=== PATIENT | male | born 1975 | race Caucasian/White ===

== ENCOUNTER 2016-06-15 10:08 | Inpatient (IN) | payer OTHER ==
[2016-06-15 10:15] VITALS: BMI 31.8
--- NOTE | 2016-06-15 10:26 | PDOC ---
History of Present Illness - General History Source: Patient Exam Limitations: No Limitations - History of Present Illness Initial Comments: 06/15/16 10:28 The patient is a 41-year-old man, accompanied by mother, with a significant past medical history of hypertension, heroin IVDA (on Methadone maint), hepatitis C, deep venous thrombosis(2010;was on Coumadin but has been discontinued), bipolar who presents to the emergency department via walk-in for further evaluation of worsening right sided neck pain/swelling status post spider bite approximately 4 days ago. He was in the shower in his apartment when he saw a big spider that bit him on the right side of his neck. He reports feeling warm, 2 days ago. He states that he attempted to squeeze the affected area and some pus and blood came out. No numbness, tingling, weakness sensations throughout his extremities. No difficulty breathing, swallowing. No tactile fevers, diaphoresis. Patient denies any recent IVDU No chest pain, lightheadedness, dizziness, palpitations, visual changes, leg swelling. No chills, abdominal pain, nausea, vomiting, diarrhea. Allergies: Bees Past Surgical History: None reported. Social History: Current everyday cigarette smoker (approximately 20 cigarettes/ day). No ETOH use. Former heroin use (was on Methaodone) Primary Care Physician: Dr. Lima Riddle <Haley Clement - Last Filed: 06/15/16 15:22> <Khurram Nunes - Last Filed: 06/15/16 15:57> - General Chief Complaint: Bite Stated Complaint: SPIDER BITE ON NECK Time Seen by Provider: 06/15/16 10:22 Past History <Haley Clement - Last Filed: 06/15/16 15:22> - Past Medical History Hypercholesterolemia: Yes - Surgical History Abdominal Surgery: Yes (INGINAL HERNIA EDILBERTO) - Psycho/Social/Smoking Cessation Hx Anxiety: Yes Suicidal Ideation: No Smoking Status: Yes Smoking History: Current every day smoker Number of Cigarettes Smoked Daily: 20 Information on smoking cessation initiated: Yes 'Breaking Loose' booklet given: 06/15/16 <Khurram Nunes - Last Filed: 06/15/16 15:57> - Past Medical History Allergies/Adverse Reactions: Allergies Allergy/AdvReac Type Severity Reaction Status Date / Time bee pollen Allergy Verified 06/15/16 10:10 Home Medications: Ambulatory Orders Quetiapine Fumarate "Xr" [Seroquel Xr -] 400 mg PO BID 06/15/16 Zolpidem Tartrate [Ambien] 10 mg PO HS 06/15/16 Review of Systems - Review of Systems Able to Perform ROS?: Yes Comments:: 06/15/16 10:28 CONSTITUTIONAL: +Subjective fever No reported: Chills, Diaphoresis, Generalized Weakness, Malaise, Loss of Appetite HEENT: No reported: Rhinorrhea, Nasal Congestion, Throat Pain, Throat Swelling, Difficulty Swallowing, Mouth Swelling, Ear Pain, Eye Pain, Visual Changes CARDIOVASCULAR: No reported: Chest Pain, Syncope, Palpitations, Irregular Heart Rate, Lightheadedness, Peripheral Edema RESPIRATORY: No reported: Cough, Shortness of Breath, SOB with Exertion, Orthopnea, Wheezing , Stridor, Hemoptysis GASTROINTESTINAL: No reported: Abdominal pain, Abdominal Distension, Nausea, Vomiting, Diarrhea, Constipation, Melena, Hematochezia GENITOURINARY: No reported: Dysuria, Frequency, Urgency, Hesitancy, Flank Pain, Genital Pain MUSCULOSKELETAL: Reported: Neck Pain/Sweeling. No reported: Myalgia, Arthralgia, Joint Swelling, Back pain SKIN: Reported: Right Neck Sweeling. No reported: Rash, Itching, Pallor HEMEATOLOGIC/IMMUNOLOGIC: No reported: Easy Bleeding, Easy Bruising, Lymphadenopathy, Frequent infections ENDOCRINE: No reported: Unexplained Weight Gain, Unexplained Weight Loss, Heat Intolerance , Cold Intolerance NEUROLOGIC: No reported: Headache, Focal Weakness, Paresthesias, Vertigo, Lightheadedness, Unsteady Gait, Seizure, Mental Status Changes, Incontinence PSYCHIATRIC: No reported: Anxiety, Depression <Haley Clement - Last Filed: 06/15/16 15:22> *Physical Exam - Vital Signs Last Vital Signs Temp Pulse Resp BP Pulse Ox 97.9 F 87 16 126/79 9 L 06/15/16 10:10 06/15/16 10:10 06/15/16 10:10 06/15/16 10:10 06/15/16 10:10 - Physical Exam Comments: 06/15/16 10:28 GENERAL: The patient is awake, alert, and fully oriented, Nontoxic - in no acute distress. HEAD: Normocephalic, atraumatic. EYES: extraocular movements intact, sclera anicteric, conjunctiva clear. ENT: Normal voice, Moist mucous membranes. NECK: Normal range of motion, supple. There is a 3x4cm erythematous slightly fluctuant tender mass on the right lateral posterior aspect of the neck with some surrounding erythema and also with some significant diffuse tenderness in the area that extends outside of the area of erythema LUNGS: Breath sounds equal, clear to auscultation bilaterally. No wheezes, no rhonchi, no rales. HEART: Regular rate and rhythm, without murmur, rub or gallop. ABDOMEN: Soft, nontender, normoactive bowel sounds. No guarding, no rebound.No CVA tenderness EXTREMITIES: Normal range of motion, no edema. No clubbing or cyanosis. No cords, erythema, or tenderness. NEUROLOGICAL: No facial assymetry, Normal speech, PSYCH: Normal mood, normal affect. SKIN: Warm, Dry, normal turgor. <Haley Clement - Last Filed: 06/15/16 15:22> - Vital Signs Last Vital Signs Temp Pulse Resp BP Pulse Ox 97.9 F 87 16 126/79 9 L 06/15/16 10:10 06/15/16 10:10 06/15/16 10:10 06/15/16 10:10 06/15/16 10:10 <Khurram Nunes - Last Filed: 06/15/16 15:57> ED Treatment Course - LABORATORY CBC & Chemistry Diagram: 06/15/16 11:34 06/15/16 11:34 - RADIOLOGY Radiograph Interpretation: 06/15/16 14:02 EXAM: CT/SOFT TISSUE NECK CT WITH CONTR IMPRESSION: CT neck with IV contrast enhancement. Direct axial images were obtained with coronal, sagittal reconstruction images. Patient received 90 cc of Omniscan 350. Mild induration of the subcutaneous soft tissues along the lateral surface of the right sternocleidomastoid muscle in the right neck region at the site of the BB markers is seen - superficial cellulitis. No abscess is seen. No enlarged lymph nodes are seen. The visualized CSF spaces are normal. No evidence of edema, enhancing lesion is seen in the visualized brain parenchyma. Symmetrical ocular globes. Unremarkable retro-orbital soft tissues. Nonspecific mucosal changes are noted in the left maxillary sinus. The paranasal sinuses mastoid sinuses are not opacified. Normal parapharyngeal spaces. The pharyngeal, laryngeal and tracheal airways are patent. There is no evidence of submandibular space mass. The submandibular glands appear bilaterally symmetric and normal in size and density. The parotid glands also appear normal and symmetrical in size, contour, density with no evidence of intraparotid mass or adenopathy. Normal epiglottis, vallecula, aryepiglottic folds, vocal cords. Normal thyroid gland. No evidence of prevertebral soft tissue swelling, retropharyngeal fluid collection or edema. No dominant neck mass is seen. No evidence of neck adenopathy. Unremarkable thyroid gland. The lung apices are clear. Normal enhancement of the major vessels of the neck. Normal bifurcation of common carotid arteries. No stenotic lesions are seen. The left common carotid artery originates from the aortic arch. Normal height of vertebral bodies. C6-C7. Posterior degenerative para discal osteophytes. Intact odontoid. No evidence of widening of predental space. The intraspinal contents cannot be adequately evaluated due to the beam hardening artifacts. No bony destructive <Haley Clement - Last Filed: 06/15/16 15:22> - LABORATORY CBC & Chemistry Diagram: 06/15/16 11:34 06/15/16 11:34 <Khurram Nunes - Last Filed: 06/15/16 15:57> Medical Decision Making - Medical Decision Making 06/15/16 14:03 A call was placed to Medical Physician emergency medicine nurse practitioner, Dr. Yelena Soares at [phone]. 06/15/16 14:[address] Yelena Soares. 06/15/16 14:[address] Yelena Soares at her mobile phone. Left voicemail. 06/15/16 15:22 MicroBlogged Hospitalist. <Haley Clement - Last Filed: 06/15/16 15:22> - Medical Decision Making 06/15/16 10:53 41y M hx of IVDU currently on methadon maintenance presents 5 days s/p presumed spider bite (he saw a spider on fall down when he was taking a shower on monday), he developed a small lesion that worsened and by monday was more larger/painful - he tried to drain it himself using pressure and saw some bloody /yellow/purulent drainage with subjective fever. on exam pt has eruthema/with induration and signs of surrounding tenderness outside of the area of erythema likely cellulitis/abscess, will obtain ct of neck to r/o spread of infection byond subq tissue A portion of this note was documented by scribe services under my direction. I have reviewed the details of the note, within reason, and agree with the documentation with the following case summary and management plan written by me 06/15/16 15:[address] negative for severe infection, cellulitis but due to his pain will admit to observation for ivabx case d/w dr. huerta agreed with placement in observation Case discussed in detail with admitting physician including history, physical exam and ancillary studies. Admitting physician has assumed care for the patient, will follow all pending diagnostics and will complete the evaluation and treatment. <Khurram Nunes - Last Filed: 06/15/16 15:57> *DC/Admit/Observation/Transfer - Attestations Scribe Attestion: 06/15/16 10:28 Documentation prepared by Haley Clement, acting as medical imaging director for Khurram Nunes MD. <Haley Clement - Last Filed: 06/15/16 15:22> - Discharge Dispostion Admit: Yes <Khurram Nunes - Last Filed: 06/15/16 15:57> Diagnosis at time of Disposition: Cellulitis of neck - Discharge Dispostion Condition at time of disposition: Stable - Referrals Referrals: Lima Riddle [Primary Care Provider] -
[2016-06-15] MEDS ORDERED: VANCOMYCIN 1,000 MG in DEXTROSE 5%-WATER - 250 ML IVPB ONE (11:11)
[2016-06-15] MEDS ORDERED: morphine CARPU-JECT 4 MG/1 ML DISP.SYRIN IVPUSH ONE ×2 (11:40→15:03)
[2016-06-15] MEDS ORDERED: morphine CARPU-JECT 4 MG/1 ML DISP.SYRIN ONE ×2 (11:40→15:17)
[2016-06-15] MEDS ORDERED: VANCOMYCIN 1 GRAM (PRE-DOCKED) 250 ML IVPB ONE ×2 (11:40→22:30)
[2016-06-15 12:07] LABS: BASOPHIL 1.2 % (0-2.0); EOSINOPHIL 3.2 % (0-4.5); MCH 29.7 pg (25.7-33.7); MCHC 33.9 g/dl (32.0-35.9); MEAN CELL VOLUME 87.5 fl (80-96); MEAN PLT VOLUME 8.5 fl (7.5-11.1); NEUTROPHILS 57.6 % (42.8-82.8); PLATELET COUNT 241 K/MM3 (134-434); RDW 13.8 % (11.9-15.9); WHITE BLOOD COUNT 6.4 K/mm3 (4.0-10.0)
[2016-06-15 12:22] LABS: INR 0.99 (0.82-1.09); PROTHROMBIN TIME (PATIENT) 10.9 SEC (9.98-11.88)
[2016-06-15 12:31] LABS: ALBUMIN 3.7 g/dl (3.4-5.0); ANION GAP 8 (8-16); BILIRUBIN,TOTAL 0.3 mg/dL (0.2-1.0); CALCIUM 8.5 mg/dL (8.5-10.1); CO2 26 mmol/L (21-32); CREATININE 0.8 mg/dL (0.7-1.3); GLUCOSE,RANDOM 81 mg/dL (74-106); SGOT/AST 16 U/L (15-37); SGPT/ALT 18 U/L (12-78); TOT PROT 7.3 g/dl (6.4-8.2)
[2016-06-15 12:32] LABS: ALK PHOS 84 U/L (45-117)
[2016-06-15] MEDS: morphine CARPU-JECT 2 MG/1 ML DISP.SYRIN IVPUSH PRN (20:10)
[2016-06-15] MEDS: ZOLPIDEM TARTRATE 5 MG TABLET PO PRN (21:47)
[2016-06-15] MEDS ORDERED: PATIENT'S OWN MEDICATION (NON-FORMULARY) (Zolpidem Tartrate 10 MG) PO SCH (22:00)
[2016-06-16] MEDS: morphine CARPU-JECT 2 MG/1 ML DISP.SYRIN IVPUSH PRN ×2 (06:05→11:53)
[2016-06-16 07:57] LABS: BASOPHIL 0.8 % (0-2.0); EOSINOPHIL 2.9 % (0-4.5); MCH 29.3 pg (25.7-33.7); MCHC 33.6 g/dl (32.0-35.9); MEAN CELL VOLUME 87.4 fl (80-96); MEAN PLT VOLUME 8.6 fl (7.5-11.1); NEUTROPHILS 63.6 % (42.8-82.8); PLATELET COUNT 250 K/MM3 (134-434); RDW 13.8 % (11.9-15.9); WHITE BLOOD COUNT 6.7 K/mm3 (4.0-10.0)
[2016-06-16 08:21] LABS: ALBUMIN 3.7 g/dl (3.4-5.0); ANION GAP 7 (8-16); CO2 28 mmol/L (21-32); CREATININE 0.9 mg/dL (0.7-1.3); GLUCOSE,RANDOM 98 mg/dL (74-106); SGOT/AST 15 U/L (15-37); SGPT/ALT 17 U/L (12-78)
[2016-06-16 08:24] LABS: ALK PHOS 81 U/L (45-117); BILIRUBIN,TOTAL 0.3 mg/dL (0.2-1.0); TOT PROT 7.4 g/dl (6.4-8.2)
[2016-06-16] MEDS ORDERED: VANCOMYCIN 1 GRAM (PRE-DOCKED) 250 ML IVPB SCH (10:00)
[2016-06-16] MEDS ORDERED: ENOXAPARIN NA (PORCINE) 40 MG/0.4 ML DISP.SYRIN SQ SCH (10:00)
[2016-06-16] MEDS ORDERED: PT OWN MED DRAWER 7, Y5N ONE ×2 (10:21→20:49)
[2016-06-16] MEDS ORDERED: METHADONE HCL 10 MG TABLET ONE (12:24)
[2016-06-16] MEDS ORDERED: METHADONE HCL 40 MG DISPERSABLE TABLET ONE (12:28)
[2016-06-16] MEDS ORDERED: NICOTINE 21 MG/24 HOURS TOPICAL PATCH TD SCH (12:30)
[2016-06-16] MEDS: METHADONE 120 MG, METHADONE 20 MG PO SCH (12:38)
--- NOTE | 2016-06-16 14:14 | CONSULT ---
Consult Consult Specialty:: infectious diseases Referred by:: Reason for Consultation:: abscess on the neck rt side - History of Present Illness Chief Complaint: swelling rt side of the neck History of Present Illness: patient with no specific medical problems according to him says on monday he was bit by a big spider .he did not think of anything at that time patients swelling increased from monday and patient came to the hospital on mon patient felt feverish but was not sure that he had fever patient states that it has increased from yesterday to today currently except swelling nothing is bothering him - History Source History Provided By: Patient Limitations to Obtaining History: No Limitations - Smoking History Smoking history: Current every day smoker Aproximately how many cigarettes per day: 20 Home Medications - Allergies Allergies/Adverse Reactions: Allergies Allergy/AdvReac Type Severity Reaction Status Date / Time bee pollen Allergy Verified 06/15/16 10:10 - Home Medications Home Medications: Ambulatory Orders Quetiapine Fumarate "Xr" [Seroquel Xr -] 400 mg PO BID 06/15/16 Zolpidem Tartrate [Ambien] 10 mg PO HS 06/15/16 Review of Systems - Review of Systems Constitutional: reports: Other Eyes: reports: No Symptoms HENT: reports: No Symptoms Neck: reports: Lumps, Pain on Movement, Tenderness, Other (swelling on the rt side of the neck) Cardiovascular: reports: No Symptoms Respiratory: reports: No Symptoms Gastrointestinal: reports: No Symptoms Musculoskeletal: reports: Other (swelling on the rt side of the neck) Integumentary: reports: Change in Color, Erythema, Lump Neurological: reports: No Symptoms Endocrine: reports: No Symptoms Hematology/Lymphatic: reports: No Symptoms Psychiatric: reports: No Symptoms Physical Exam Vital Signs: Vital Signs Temperature 98.4 F 06/16/16 06:28 Pulse Rate 90 06/16/16 06:28 Respiratory Rate 20 06/16/16 06:28 Blood Pressure 110/68 06/16/16 06:28 O2 Sat by Pulse Oximetry (%) 9 L 06/15/16 15:56 Constitutional: Yes: Well Nourished, No Distress, Calm Eyes: Yes: Conjunctiva Clear HENT: Yes: Atraumatic, Other Neck: Yes: Supple, Other (swelling on the rt side of the neck,bite juana present) Cardiovascular: Yes: Regular Rate and Rhythm Respiratory: Yes: Regular, CTA Bilaterally Gastrointestinal: Yes: Normal Bowel Sounds, Soft Musculoskeletal: Yes: Other Extremities: Yes: WNL Integumentary: Yes: Erythema, Other Wound/Incision: Yes: Open to air Neurological: Yes: Alert, Oriented Psychiatric: Yes: Alert Labs: CBC, BMP 06/16/16 07:00 06/16/16 07:00 Imaging - Results Cat Scan: Report Reviewed, Image Reviewed Assessment/Plan spider bite to the neck swelling of the neck pain tenderness plan will start patient on vanco and zosyn close monitoring of the swelling
--- NOTE | 2016-06-16 16:17 | HP ---
Admitting History and Physical - Smoking History Smoking history: Current every day smoker Aproximately how many cigarettes per day: 20 Home Medications - Allergies Allergies/Adverse Reactions: Allergies Allergy/AdvReac Type Severity Reaction Status Date / Time bee pollen Allergy Verified 06/15/16 10:10 - Home Medications Home Medications: Ambulatory Orders Quetiapine Fumarate "Xr" [Seroquel Xr -] 400 mg PO BID 06/15/16 Zolpidem Tartrate [Ambien] 10 mg PO HS 06/15/16 Physical Examination Vital Signs: Vital Signs Temperature 98.1 F 06/16/16 14:38 Pulse Rate 80 06/16/16 14:38 Respiratory Rate 20 06/16/16 06:28 Blood Pressure 120/64 06/16/16 14:38 O2 Sat by Pulse Oximetry (%) 9 L 06/15/16 15:56 Labs: CBC, BMP 06/16/16 07:00 06/16/16 07:00
[2016-06-16] MEDS: PIPERACILLIN/TAZOB 3.375 GM 50 ML IVPB SCH (17:10)
[2016-06-16] MEDS: VANCOMYCIN 1 GRAM (PRE-DOCKED) 250 ML IVPB SCH (17:55)
[2016-06-16] MEDS: KETOROLAC TROMETHAMINE 30 MG/1 ML VIAL IVPUSH PRN (21:13)
[2016-06-16] MEDS: ZOLPIDEM TARTRATE 5 MG TABLET PO PRN (21:17)
[2016-06-17] MEDS: PIPERACILLIN/TAZOB 3.375 GM 50 ML IVPB SCH ×4 (02:51→18:40)
[2016-06-17] MEDS ORDERED: METHADONE HCL 10 MG TABLET ONE (06:01)
[2016-06-17] MEDS ORDERED: METHADONE HCL 40 MG DISPERSABLE TABLET ONE (06:02)
[2016-06-17] MEDS: METHADONE 120 MG, METHADONE 20 MG PO SCH (06:25)
[2016-06-17] MEDS: KETOROLAC TROMETHAMINE 30 MG/1 ML VIAL IVPUSH PRN (06:57)
--- NOTE | 2016-06-17 09:05 | CONSULT ---
- Consultation REQUESTED PROVIDER: Dr. Hensley CONSULT REQUEST: We have been asked to surgically evaluate this patient for neck abscess. PCP: Yelena Soares HISTORY OF PRESENT ILLNESS: 41 yo M presented to the ED 06/15/16 complaining of fever and neck pain/swelling/redness that developed following a spider bite 6 days ago. The patient states the pain/swelling/redness developed approximately 2 days following the bite. He states these symptoms have been improving since yesterday. He states the bite on his neck opened last night and a small amount of blood and pus came out. He denies fever, chills, nausea, vomiting. PMHx: Anxiety, heroin IVDA (denies current use), hepatitis C, DVT 2010 ( treated with Coumadin) PSHx: Denies Social Hx: Current everyday smoker (20 cigarettes per day) Home Medications Medication Instructions Recorded Quetiapine Fumarate "Xr" [Seroquel 400 mg PO BID 06/15/16 Xr -] Zolpidem Tartrate [Ambien] 10 mg PO HS 06/15/16 Allergies Allergy/AdvReac Type Severity Reaction Status Date / Time bee pollen Allergy Verified 06/15/16 10:10 REVIEW OF SYSTEMS: CONSTITUTIONAL: Absent: fever (resolved), chills, generalized weakness CARDIOVASCULAR: Absent: chest pain, syncope, lightheadedness RESPIRATORY: Absent: cough, shortness of breath GASTROINTESTINAL: Absent: abdominal pain, nausea, vomiting, diarrhea, constipation GENITOURINARY: Absent: dysuria, frequency, urgency MUSCULOSKELETAL: Absent: myalgia, arthralgia SKIN: Present: Spider bite right neck with redness, swelling, pain Absent: rash, itching, pallor HEMATOLOGIC/IMMUNOLOGIC: Absent: easy bleeding, easy bruising NEUROLOGIC: Absent: headache, paresthesias, dizziness PHYSICAL EXAM: GENERAL: Awake, alert, and fully oriented, in no acute distress. HEAD: Normal with no signs of trauma. EYES: PERRL, sclera anicteric, conjunctiva clear. NECK: Normal ROM, right neck with approx 3x2cm area of erythema and induration, without fluctuance, central 3mm scabbed central area/opening, unable to express drainage LUNGS: Clear to auscultation bilat anteriorly. HEART: Regular rate and rhythm. ABDOMEN: Soft, nontender MUSCULOSKELETAL: Normal ROM at all joints UPPER EXTREMITIES:warm, well-perfused. LOWER EXTREMITIES: warm, well-perfused. NEUROLOGICAL: Normal speech, gait not observed. PSYCH: Good eye contact. Appropriate mood and affect. SKIN: Warm, dry Vital Signs Temperature 97.2 F L 06/17/16 06:00 Pulse Rate 66 06/17/16 06:00 Respiratory Rate 16 06/17/16 06:00 Blood Pressure 129/74 06/17/16 06:00 O2 Sat by Pulse Oximetry (%) 96 06/16/16 21:00 Lab Results CBC, BMP 06/16/16 07:00 06/16/16 07:00 Microbiology 06/15/16 11:34 Blood - Peripheral Venous Blood Culture - Preliminary NO GROWTH OBTAINED AFTER 24 HOURS, INCUBATION TO CONTINUE FOR 4 DAYS. 06/15/16 11:34 Blood - Peripheral Venous Blood Culture - Preliminary NO GROWTH OBTAINED AFTER 24 HOURS, INCUBATION TO CONTINUE FOR [address] soft tissue neck- without evidence of neck abscess Problem List - Problems (1) Cellulitis of neck Assessment/Plan: S/p spider bite right neck Patient afebrile, WBC WNL CT soft tissue neck- without evidence of neck abscess Continue abx per ID Code(s): L03.221 - CELLULITIS OF NECK Visit type - Case Type Case Type: ED Admission - New patient This patient is new to me today: Yes Date on this admission: 06/17/16
[2016-06-17] MEDS: NICOTINE 21 MG/24 HOURS TOPICAL PATCH TD SCH (10:30)
[2016-06-17] MEDS: VANCOMYCIN 1 GRAM (PRE-DOCKED) 250 ML IVPB SCH (14:12)
--- NOTE | 2016-06-17 15:54 | PN ---
Progress Note, Physician History of Present Illness: patient doing better marked improvement in swelling still a lot on induration and edema and erythema present no other issues - Current Medication List Current Medications: Active Medications Vancomycin HCl (Vancomycin (Pre-Docked)) 250 mls @ 250 mls/hr IVPB DAILY@1430 [facility] PRN Reason: Protocol Last Admin: 06/17/16 14:12 Dose: 250 mls/hr Piperacillin Sod/Tazobactam Sod (Zosyn 3.375gm Ivpb (Pre-Docked)) 50 mls @ 100 mls/hr IVPB Q8H-IV [facility] PRN Reason: Protocol Last Admin: 06/17/16 10:29 Dose: 100 mls/hr Ketorolac Tromethamine (Toradol Injection -) 30 mg IVPUSH Q6H PRN PRN Reason: PAIN Stop: 06/21/16 20:50 Last Admin: 06/17/16 06:57 Dose: 30 mg Methadone HCl 120 mg/ (Methadone HCl 20 mg) 140 mg PO DAILY@0600 [facility] Last Admin: 06/17/16 06:25 Dose: 140 mg Nicotine (Nicoderm Patch -) 21 mg TD DAILY [facility] Last Admin: 06/17/16 10:30 Dose: Not Given Quetiapine Fumarate (Seroquel Xr -) 400 mg PO BID [facility] Last Admin: 06/17/16 10:30 Dose: 400 mg Zolpidem Tartrate (Ambien -) 10 mg PO HS PRN Last Admin: 06/16/16 21:17 Dose: 10 mg - Objective Vital Signs: Vital Signs Temperature 97.6 F 06/17/16 14:26 Pulse Rate 62 06/17/16 14:26 Respiratory Rate 16 06/17/16 06:00 Blood Pressure 119/60 06/17/16 14:26 O2 Sat by Pulse Oximetry (%) 96 06/16/16 21:00 Constitutional: Yes: No Distress, Calm HENT: Yes: Other (neck swelling improving) Cardiovascular: Yes: Regular Rate and Rhythm Respiratory: Yes: Regular, CTA Bilaterally Gastrointestinal: Yes: Normal Bowel Sounds, Soft Musculoskeletal: Yes: WNL Extremities: Yes: WNL Neurological: Yes: Alert, Oriented Psychiatric: Yes: Alert Labs: CBC, BMP 06/16/16 07:00 06/16/16 07:00 INR, PTT INR 0.99 (0.82-1.09) D 06/15/16 11:34 Assessment/Plan spider bite to the neck swelling of the neck pain tenderness plan continue abx will need couple of days of iv abx i have explained that to the patient he does not want to say for the duration of treatment i derickve explained him the dangers of not completing the abx
--- NOTE | 2016-06-17 20:07 | PN ---
Progress Note, Physician - Current Medication List Current Medications: Active Medications Vancomycin HCl (Vancomycin (Pre-Docked)) 250 mls @ 250 mls/hr IVPB DAILY@1430 [facility] PRN Reason: Protocol Last Admin: 06/17/16 14:12 Dose: 250 mls/hr Piperacillin Sod/Tazobactam Sod (Zosyn 3.375gm Ivpb (Pre-Docked)) 50 mls @ 100 mls/hr IVPB Q8H-IV [facility] PRN Reason: Protocol Last Admin: 06/17/16 18:40 Dose: 100 mls/hr Ketorolac Tromethamine (Toradol Injection -) 30 mg IVPUSH Q6H PRN PRN Reason: PAIN Stop: 06/21/16 20:50 Last Admin: 06/17/16 06:57 Dose: 30 mg Methadone HCl 120 mg/ (Methadone HCl 20 mg) 140 mg PO DAILY@0600 [facility] Last Admin: 06/17/16 06:25 Dose: 140 mg Nicotine (Nicoderm Patch -) 21 mg TD DAILY [facility] Last Admin: 06/17/16 10:30 Dose: Not Given Quetiapine Fumarate (Seroquel Xr -) 400 mg PO BID [facility] Last Admin: 06/17/16 10:30 Dose: 400 mg Zolpidem Tartrate (Ambien -) 10 mg PO HS PRN Last Admin: 06/16/16 21:17 Dose: 10 mg - Objective Vital Signs: Vital Signs Temperature 98.0 F 06/17/16 18:16 Pulse Rate 75 06/17/16 18:16 Respiratory Rate 20 06/17/16 18:16 Blood Pressure 131/70 06/17/16 18:16 O2 Sat by Pulse Oximetry (%) 96 06/17/16 09:00 Labs: CBC, BMP 06/16/16 07:00 06/16/16 07:00 INR, PTT INR 0.99 (0.82-1.09) D 06/15/16 11:34
[2016-06-17] MEDS ORDERED: PT OWN MED DRAWER 7, Y5N ONE (21:30)
[2016-06-17] MEDS: ZOLPIDEM TARTRATE 5 MG TABLET PO PRN (22:29)
[2016-06-18] MEDS: PIPERACILLIN/TAZOB 3.375 GM 50 ML IVPB SCH ×3 (02:20→17:27)
[2016-06-18] MEDS ORDERED: METHADONE HCL 10 MG TABLET ONE (06:05)
[2016-06-18] MEDS ORDERED: METHADONE HCL 40 MG DISPERSABLE TABLET ONE (06:05)
[2016-06-18] MEDS: METHADONE 120 MG, METHADONE 20 MG PO SCH (06:20)
--- NOTE | 2016-06-18 08:44 | PN ---
Progress Note (short form) - Note Progress Note: clinically improving no surgical intervention at this point continue current management will continue to follow
[2016-06-18] MEDS ORDERED: PT OWN MED DRAWER 7, Y5N ONE ×3 (09:44→21:22)
[2016-06-18] MEDS: NICOTINE 21 MG/24 HOURS TOPICAL PATCH TD SCH (09:55)
--- NOTE | 2016-06-18 14:51 | PN ---
Progress Note, Physician History of Present Illness: patient doing better improvement in the swelling centrifugal screen tender and erythema still present - Current Medication List Current Medications: Active Medications Vancomycin HCl (Vancomycin (Pre-Docked)) 250 mls @ 250 mls/hr IVPB DAILY@1430 [facility] PRN Reason: Protocol Last Admin: 06/17/16 14:12 Dose: 250 mls/hr Piperacillin Sod/Tazobactam Sod (Zosyn 3.375gm Ivpb (Pre-Docked)) 50 mls @ 100 mls/hr IVPB Q8H-IV [facility] PRN Reason: Protocol Last Admin: 06/18/16 09:54 Dose: 100 mls/hr Ketorolac Tromethamine (Toradol Injection -) 30 mg IVPUSH Q6H PRN PRN Reason: PAIN Stop: 06/21/16 20:50 Last Admin: 06/17/16 06:57 Dose: 30 mg Methadone HCl 120 mg/ (Methadone HCl 20 mg) 140 mg PO DAILY@0600 [facility] Last Admin: 06/18/16 06:20 Dose: 140 mg Nicotine (Nicoderm Patch -) 21 mg TD DAILY [facility] Last Admin: 06/18/16 09:55 Dose: Not Given Quetiapine Fumarate (Seroquel Xr -) 400 mg PO BID [facility] Last Admin: 06/18/16 09:55 Dose: 400 mg Zolpidem Tartrate (Ambien -) 10 mg PO HS PRN Last Admin: 06/17/16 22:29 Dose: 10 mg - Objective Vital Signs: Vital Signs Temperature 98.2 F 06/18/16 14:12 Pulse Rate 76 06/18/16 14:12 Respiratory Rate 20 06/18/16 06:23 Blood Pressure 122/62 06/18/16 14:12 O2 Sat by Pulse Oximetry (%) 96 06/17/16 21:00 Constitutional: Yes: No Distress, Calm HENT: Yes: Other (rt neck swelling with erythema) Neck: Yes: Supple Cardiovascular: Yes: Regular Rate and Rhythm Respiratory: Yes: Regular, CTA Bilaterally Gastrointestinal: Yes: Normal Bowel Sounds, Soft Musculoskeletal: Yes: WNL Extremities: Yes: WNL Integumentary: Yes: Erythema, Other Wound/Incision: Yes: Clean/Dry Neurological: Yes: Alert, Oriented Psychiatric: Yes: Alert Labs: CBC, BMP 06/16/16 07:00 06/16/16 07:00 INR, PTT INR 0.99 (0.82-1.09) D 06/15/16 11:34 Assessment/Plan spider bite to the neck swelling of the neck pain tenderness plan continue abx will need couple of days of iv abx i have explained that to the patient he does not want to say for the duration of treatment i ahve explained him the dangers of not completing the abx
[2016-06-18] MEDS: VANCOMYCIN 1 GRAM (PRE-DOCKED) 250 ML IVPB SCH (15:00)
[2016-06-18] MEDS ORDERED: ZOLPIDEM TARTRATE 5 MG TABLET PO PRN (23:10)
--- NOTE | 2016-06-18 23:47 | PN ---
Progress Note, Physician - Current Medication List Current Medications: Active Medications Vancomycin HCl (Vancomycin (Pre-Docked)) 250 mls @ 250 mls/hr IVPB DAILY@1430 [facility] PRN Reason: Protocol Last Admin: 06/18/16 15:00 Dose: 250 mls/hr Piperacillin Sod/Tazobactam Sod (Zosyn 3.375gm Ivpb (Pre-Docked)) 50 mls @ 100 mls/hr IVPB Q8H-IV [facility] PRN Reason: Protocol Last Admin: 06/18/16 17:27 Dose: 100 mls/hr Ketorolac Tromethamine (Toradol Injection -) 30 mg IVPUSH Q6H PRN PRN Reason: PAIN Stop: 06/21/16 20:50 Last Admin: 06/17/16 06:57 Dose: 30 mg Methadone HCl 120 mg/ (Methadone HCl 20 mg) 140 mg PO DAILY@0600 [facility] Last Admin: 06/18/16 06:20 Dose: 140 mg Nicotine (Nicoderm Patch -) 21 mg TD DAILY [facility] Last Admin: 06/18/16 09:55 Dose: Not Given Quetiapine Fumarate (Seroquel Xr -) 400 mg PO BID [facility] Last Admin: 06/18/16 21:25 Dose: 400 mg Zolpidem Tartrate (Ambien -) 10 mg PO HS PRN PRN Reason: INSOMNIA - Objective Vital Signs: Vital Signs Temperature 97.5 F L 06/18/16 21:00 Pulse Rate 73 06/18/16 21:00 Respiratory Rate 18 06/18/16 21:00 Blood Pressure 111/67 06/18/16 21:00 O2 Sat by Pulse Oximetry (%) 96 06/17/16 21:00 Labs: CBC, BMP 06/16/16 07:00 06/16/16 07:00 INR, PTT INR 0.99 (0.82-1.09) D 06/15/16 11:34
[2016-06-19] MEDS: PIPERACILLIN/TAZOB 3.375 GM 50 ML IVPB SCH ×2 (02:15→09:39)
[2016-06-19 05:48] VITALS: TEMP 97.7
[2016-06-19] MEDS ORDERED: METHADONE HCL 10 MG TABLET ONE (06:00)
[2016-06-19] MEDS ORDERED: METHADONE HCL 40 MG DISPERSABLE TABLET ONE (06:01)
[2016-06-19] MEDS: METHADONE 120 MG, METHADONE 20 MG PO SCH (06:02)
[2016-06-19] MEDS: NICOTINE 21 MG/24 HOURS TOPICAL PATCH TD SCH (09:39)
--- NOTE | 2016-06-19 13:15 | PN ---
Progress Note (short form) - Note Progress Note: clinically improved clear for discharge on oral antibiotics
[2016-06-19 14:37] VITALS: BP 101/50; PULSE 73
[2016-06-19] MEDS: VANCOMYCIN 1 GRAM (PRE-DOCKED) 250 ML IVPB SCH (14:46)
--- NOTE | 2016-06-19 15:13 | PN ---
Progress Note, Physician History of Present Illness: patient doing better much better still some swelling present - Current Medication List Current Medications: Active Medications Vancomycin HCl (Vancomycin (Pre-Docked)) 250 mls @ 250 mls/hr IVPB DAILY@1430 [facility] PRN Reason: Protocol Last Admin: 06/19/16 14:46 Dose: 250 mls/hr Piperacillin Sod/Tazobactam Sod (Zosyn 3.375gm Ivpb (Pre-Docked)) 50 mls @ 100 mls/hr IVPB Q8H-IV KANDI PRN Reason: Protocol Last Admin: 06/19/16 09:39 Dose: 100 mls/hr Ketorolac Tromethamine (Toradol Injection -) 30 mg IVPUSH Q6H PRN PRN Reason: PAIN Stop: 06/21/16 20:50 Last Admin: 06/17/16 06:57 Dose: 30 mg Methadone HCl 120 mg/ (Methadone HCl 20 mg) 140 mg PO DAILY@0600 [facility] Last Admin: 06/19/16 06:02 Dose: 140 mg Nicotine (Nicoderm Patch -) 21 mg TD DAILY [facility] Last Admin: 06/19/16 09:39 Dose: Not Given Quetiapine Fumarate (Seroquel Xr -) 400 mg PO BID [facility] Last Admin: 06/19/16 09:39 Dose: 400 mg Zolpidem Tartrate (Ambien -) 10 mg PO HS PRN PRN Reason: INSOMNIA - Objective Vital Signs: Vital Signs Temperature 97.7 F 06/19/16 14:00 Pulse Rate 73 06/19/16 14:00 Respiratory Rate 12 06/19/16 05:30 Blood Pressure 101/50 06/19/16 14:00 O2 Sat by Pulse Oximetry (%) 96 06/17/16 21:00 Constitutional: Yes: No Distress, Calm HENT: Yes: Other (swelling has decreased) Neck: Yes: Supple, Trachea Midline Cardiovascular: Yes: Regular Rate and Rhythm Respiratory: Yes: Regular, CTA Bilaterally Gastrointestinal: Yes: Normal Bowel Sounds, Soft Musculoskeletal: Yes: WNL Extremities: Yes: WNL Neurological: Yes: Alert, Oriented Psychiatric: Yes: Alert Labs: CBC, BMP 06/16/16 07:00 06/16/16 07:00 INR, PTT INR 0.99 (0.82-1.09) D 06/15/16 11:34 Assessment/Plan spider bite to the neck swelling of the neck pain tenderness plan continue abx patient doing well patient ideally needs one more day of abx can go home tomorrow after he completes his dose of abx on oral if patient absolutely decides not to stay in the hospital we can give him augmentin 875mg twice a day for another 5 days and clinda 300mg every 6 hourly for another 5 days but he should be told that there is a small risk that his swelling might come back
== END 2016-06-19 16:37 | disposition left against medical advice (07) | DRG 383 ==
LOC: JER 10:08 → JERBED 15:56 → J6S 19:00 → OBSVTOIN 22:20
PROVIDERS: ADMIT Internal Medicine; ATTEND Internal Medicine
DX: L03.221 Cellulitis of neck (principal); W57.XXXA Bitten or stung by nonvenomous insect and other nonvenomous arthropods, initial encounter; Y93.E1 Activity, personal bathing and showering; Y92.002 Bathroom of unspecified non-institutional (private) residence as the place of occurrence of the external cause; F17.210 Nicotine dependence, cigarettes, uncomplicated; F41.9 Anxiety disorder, unspecified; Z86.718 Personal history of other venous thrombosis and embolism
CPT/HCPCS: 36415; 70491-TC; 80053; 85025; 85610; 87040; 99281-25; G0378; G0480

== ENCOUNTER 2016-09-19 08:46 | Emergency (ER) | payer OTHER ==
[2016-09-19 08:50] VITALS: BP 135/91; PULSE 82; TEMP 98.1; BMI 35.9
[2016-09-19] MEDS ORDERED: OXYCODONE/APAP 5/325MG COMBO TABLET PO ONE (09:12)
[2016-09-19] MEDS ORDERED: OXYCODONE/APAP 5/325MG COMBO TABLET ONE (09:14)
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
== END 2016-09-19 11:53 | disposition home or self-care (01) ==
LOC: JERFT 08:46
PROC: 2W3CX1Z Immobilization of Right Lower Arm using Splint (ICD-10-PCS; principal; 2016-09-19)
DX: S62.234A Other nondisplaced fracture of base of first metacarpal bone, right hand, initial encounter for closed fracture (principal); Y04.2XXA Assault by strike against or bumped into by another person, initial encounter; Y93.89 Activity, other specified; Y92.480 Sidewalk as the place of occurrence of the external cause
CPT/HCPCS: 29125; 73130-TC-RT; 99282-25

== ENCOUNTER 2019-02-10 19:06 | Emergency (ER) | payer OTHER ==
[2019-02-10 19:36] VITALS: BP 140/77; PULSE 83; TEMP 98.1; BMI 37.1
[2019-02-10] MEDS ORDERED: AMOX TR/POT CLAV 875MG/125MG TABLETS (FP) PO ONE (19:51)
[2019-02-10] MEDS ORDERED: IBUPROFEN 400 MG TABLET (FP) PO ONE ×2 (19:51→19:57)
[2019-02-10] MEDS ORDERED: AMOX TR/POT CLAV 875MG/125MG TABLETS (FP) ONE (19:57)
--- NOTE | 2019-02-10 19:59 | PDOC ---
History of Present Illness - General Chief Complaint: Pain, Acute Stated Complaint: TOOTHACHE Time Seen by Provider: 02/10/19 19:41 History Source: Patient Exam Limitations: No Limitations Past History - Past Medical History Allergies/Adverse Reactions: Allergies Allergy/AdvReac Type Severity Reaction Status Date / Time bee pollen Allergy Verified 09/19/16 08:46 Home Medications: Ambulatory Orders Quetiapine Fumarate "Xr" [Seroquel XR] 400 mg PO BID 06/15/16 Zolpidem Tartrate [Ambien] 10 mg PO HS 06/15/16 Oxycodone HCl/Acetaminophen [Percocet 10-325 mg Tablet] 2 each PO Q6H PRN #48 tablet MDD 8 09/19/16 Quetiapine Fumarate [Seroquel -] 400 mg PO BID #60 tab 07/18/18 Quetiapine Fumarate [Seroquel -] 400 mg PO HS #60 tab 08/15/18 Quetiapine Fumarate [Seroquel -] 400 mg PO BID #60 tab 08/22/18 Quetiapine Fumarate [Seroquel -] 400 mg PO BID #60 tab 10/03/18 Quetiapine Fumarate [Seroquel -] 400 mg PO HS #60 tab 10/31/18 Quetiapine Fumarate [Seroquel -] 400 mg PO BID #60 tab 11/08/18 Amoxicillin/Potassium Clav [Augmentin 875-125 Tablet] 1 each PO BID #19 tablet 02/10/19 HTN: Yes Hypercholesterolemia: Yes (border line) - Surgical History Abdominal Surgery: Yes (INGINAL HERNIA EDILBERTO) Neurologic Surgery: No - Psycho Social/Smoking Cessation Hx Smoking Status: Yes Smoking History: Current every day smoker Have you smoked in the past 12 months: Yes Number of Cigarettes Smoked Daily: 10 Information on smoking cessation initiated: No 'Breaking Loose' booklet given: 09/19/16 Hx Alcohol Use: No Drug/Substance Use Hx: No Substance Use Type: None *Physical Exam - Vital Signs Last Vital Signs Temp Pulse Resp BP Pulse Ox 98.1 F 83 19 140/77 98 02/10/19 19:32 02/10/19 19:32 02/10/19 19:32 02/10/19 19:32 02/10/19 19:32 - Physical Exam General Appearance: No: Apparent Distress HEENT: positive: Pharynx Normal, Other (poor dentition, +cavities, +L lower molar tooth with large gum swelling, no drainage, mild L facial swelling, no erythema) Integumentary: negative: Erythema, Ecchymosis, Bruising Neurologic: positive: Alert, Normal Mood/Affect Medical Decision Making - Medical Decision Making 43 y/o M hx of HTN, HLD, hep C, DVT 2010 (no longer on AC), bipolar, substance abuse (on methadone) presents with L lower toothache x 1 week, worsening the past few days. States he had fever of 100.2 today and took Tylenol around 5-6 hours ago. Has appointment with dentist tomorrow. Has been only able to take Tylenol for pain. Denies sob, cp, throat pain, abd pain, n/v. +smoker (0.5 ppd x 30 years). Dental abscess Plan: Motrin, Augmentin 02/10/19 19:56 Discharge - Discharge Information Problems reviewed: Yes Clinical Impression/Diagnosis: Dental abscess Condition: Stable Disposition: HOME - Admission No - Additional Discharge Information Prescriptions: Amoxicillin/Potassium Clav [Augmentin 875-125 Tablet] 1 each PO BID #19 tablet Prescription Drug Monitoring Program (I-STOP) results: I-STOP not reviewed - Follow up/Referral - Patient Discharge Instructions Patient Printed Discharge Instructions: Tooth Abscess Additional Instructions: Thank you for choosing [facility]. It was a pleasure taking care of you. You may take Motrin 600 mg every 6 hours by mouth as needed for mild to moderate pain. Take Motrin with food. Take the antibiotics as prescribed Please follow-up with the dentist tomorrow as scheduled Return to the Emergency Department if your symptoms worsen or persist or have other concerning symptoms. - Post Discharge Activity
== END 2019-02-10 20:04 | disposition home or self-care (01) ==
LOC: JERFT 19:06
DX: K04.7 Periapical abscess without sinus (principal); I10 Essential (primary) hypertension; E78.5 Hyperlipidemia, unspecified; B18.2 Chronic viral hepatitis C; F11.20 Opioid dependence, uncomplicated; F17.210 Nicotine dependence, cigarettes, uncomplicated; Z86.718 Personal history of other venous thrombosis and embolism; Z91.030 Bee allergy status
CPT/HCPCS: 99281-25

== ENCOUNTER 2023-10-15 16:49 | Observation (INO) | payer OTHER ==
[2023-10-15] MEDS ORDERED: ACETAMINOPHEN INJECTION 100 ML IVPB ONE (18:15)
[2023-10-15] MEDS ORDERED: KETOROLAC TROMETHAMINE 15 MG/ML VIAL ONE (18:15)
[2023-10-15] MEDS ORDERED: CLINDAMYCIN 600MG PREMIX IVPB 600 MG/50 ML BAG IVPB ONE (18:15)
[2023-10-15 18:25] LABS: EOS % 1.6 % (0-4.5); HEMATOCRIT 37.7 % (35.4-49); HEMOGLOBIN 12.7 GM/dL (11.7-16.9); LYMPH % 21.5 % (8-40); MCH 29.1 pg (25.7-33.7); MCHC 33.8 g/dl (32.0-35.9); MEAN CELL VOLUME 86.1 fl (80-96); MEAN PLT VOLUME 9.1 fl (7.5-11.1); MONO % 6.7 % (3.8-10.2); NEUT % 69.2 % (42.8-82.8); PLATELET COUNT 264 10^3/uL (134-434); RBC 4.38 M/mm3 (4.00-5.60); RDW 14.3 % (11.9-15.9); WHITE BLOOD COUNT 4.6 K/mm3 (4.0-10.0)
[2023-10-15] MEDS: ACETAMINOPHEN 1000 MG/100 ML BAG IVPB ONE (18:27)
[2023-10-15] MEDS: KETOROLAC TROMETHAMINE 15 MG/ML VIAL IVPUSH ONE (18:27)
[2023-10-15 18:31] LABS: INR 0.99 (0.83-1.09); PROTHROMBIN TIME (PATIENT) 11.4 SEC (9.7-13.0)
[2023-10-15 18:44] LABS: POTASSIUM 3.7 mmol/L (3.5-5.1)
[2023-10-15] MEDS: CLINDAMYCIN 600MG PREMIX IVPB 600 MG/50 ML BAG IVPB ONE (18:45)
[2023-10-15 18:46] LABS: CALCIUM 8.9 mg/dL (8.5-10.1)
[2023-10-15 18:47] LABS: ALBUMIN 3.5 g/dl (3.4-5.0); BLOOD UREA NITROGEN 10.7 mg/dL (7-18); MAGNESIUM 2.1 mg/dL (1.8-2.4)
[2023-10-15 18:50] LABS: CREATININE 0.7 mg/dL (0.55-1.3)
[2023-10-15 18:51] LABS: TOT PROT 7.1 g/dl (6.4-8.2)
[2023-10-15 18:52] LABS: BILIRUBIN,TOTAL 0.3 mg/dL (0.2-1)
[2023-10-15 18:55] LABS: N-TERMINAL BNP 46.9 pg/ml (5-125)
[2023-10-15] MEDS ORDERED: LACTATED RINGERS SOLUTION 1000 ML INFUS.BAG IV ONE (19:00)
[2023-10-15] MEDS: LACTATED RINGERS SOLUTION 1,000 ML/1,000 ML INFUS.BAG IV SCH (19:31)
[2023-10-15] MEDS ORDERED: DOCUSATE SODIUM 100 MG CAPSULE (FP) PO PRN (19:51)
[2023-10-16] MEDS ORDERED: ACETAMINOPHEN 1000 MG/100 ML BAG IVPB PRN (00:30)
[2023-10-16 02:48] VITALS: BMI 37.3
[2023-10-16] MEDS: CLINDAMYCIN 600MG PREMIX IVPB 600 MG/50 ML BAG IVPB SCH (03:02)
[2023-10-16 09:40] LABS: BASO % 0.9 % (0-2.0); HEMATOCRIT 35.3 % (35.4-49); HEMOGLOBIN 11.9 GM/dL (11.7-16.9); LYMPH % 35.4 % (8-40); MCH 28.9 pg (25.7-33.7); MCHC 33.7 g/dl (32.0-35.9); MEAN CELL VOLUME 85.6 fl (80-96); MEAN PLT VOLUME 9.4 fl (7.5-11.1); MONO % 10.7 % (3.8-10.2); PLATELET COUNT 232 10^3/uL (134-434); RBC 4.12 M/mm3 (4.00-5.60); RDW 14.1 % (11.9-15.9); WHITE BLOOD COUNT 3.2 K/mm3 (4.0-10.0)
[2023-10-16 09:56] LABS: POTASSIUM 3.5 mmol/L (3.5-5.1)
[2023-10-16 09:59] LABS: CALCIUM 8.6 mg/dL (8.5-10.1)
[2023-10-16 10:00] LABS: BLOOD UREA NITROGEN 10.2 mg/dL (7-18)
[2023-10-16 10:03] LABS: CREATININE 0.7 mg/dL (0.55-1.3)
[2023-10-16] MEDS: methaDONE HCL 40 MG DISPERSABLE TABLET PO SCH (13:22)
[2023-10-16] MEDS: CEFAZOLIN 1 GM in DEXTROSE 5%-WATER - 50 ML IVPB SCH (13:23)
[2023-10-16] MEDS: ARIPiprazole 5 MG TABLET PO SCH (14:02)
[2023-10-16] MEDS: QUEtiapine FUMARATE 200 MG TABLET PO SCH (22:08)
[2023-10-16] MEDS: DIVALPROEX SODIUM 250 MG TABLET E.C. PO SCH (22:10)
[2023-10-17 09:11] LABS: BASO % 0.9 % (0-2.0); EOS % 3.2 % (0-4.5); HEMATOCRIT 37.2 % (35.4-49); HEMOGLOBIN 12.5 GM/dL (11.7-16.9); LYMPH % 33.1 % (8-40); MCH 29.2 pg (25.7-33.7); MCHC 33.5 g/dl (32.0-35.9); MEAN CELL VOLUME 87.1 fl (80-96); MEAN PLT VOLUME 9.3 fl (7.5-11.1); NEUT % 52.8 % (42.8-82.8); PLATELET COUNT 250 10^3/uL (134-434); RBC 4.27 M/mm3 (4.00-5.60); WHITE BLOOD COUNT 3.2 K/mm3 (4.0-10.0)
[2023-10-17 09:23] LABS: POTASSIUM 3.6 mmol/L (3.5-5.1)
[2023-10-17 09:36] LABS: CALCIUM 9.1 mg/dL (8.5-10.1)
[2023-10-17 09:37] LABS: ALBUMIN 3.2 g/dl (3.4-5.0); BLOOD UREA NITROGEN 8.8 mg/dL (7-18)
[2023-10-17 09:40] LABS: CREATININE 0.8 mg/dL (0.55-1.3)
[2023-10-17 09:41] LABS: TOT PROT 6.6 g/dl (6.4-8.2)
[2023-10-17 09:42] LABS: BILIRUBIN,TOTAL 0.3 mg/dL (0.2-1)
[2023-10-17] MEDS: HEPARIN NA (PORCINE) 5,000 UNITS/ML 1ML VIAL SQ SCH (09:53)
[2023-10-17] MEDS ORDERED: SENNOSIDES 8.6MG TABLET (FP) PO PRN (15:53)
[2023-10-17] MEDS: POLYETHYLENE GLYCOL (HEALTHYLAX) 3350 17 GM PACKET PO SCH (17:34)
[2023-10-17] MEDS: DOCUSATE SODIUM 100 MG CAPSULE (FP) PO SCH (21:14)
[2023-10-18] MEDS: KETOROLAC TROMETHAMINE 15 MG/ML VIAL IVPUSH PRN (01:50)
[2023-10-18 08:25] LABS: POTASSIUM 4.2 mmol/L (3.5-5.1)
[2023-10-18 08:35] LABS: ALBUMIN 3.3 g/dl (3.4-5.0)
[2023-10-18 08:36] LABS: BASO % 0.6 % (0-2.0); BLOOD UREA NITROGEN 11.9 mg/dL (7-18); EOS % 3.3 % (0-4.5); HEMATOCRIT 38.3 % (35.4-49); HEMOGLOBIN 12.7 GM/dL (11.7-16.9); LYMPH % 44.5 % (8-40); MCH 28.8 pg (25.7-33.7); MCHC 33.2 g/dl (32.0-35.9); MEAN CELL VOLUME 86.6 fl (80-96); MEAN PLT VOLUME 9.6 fl (7.5-11.1); MONO % 9.2 % (3.8-10.2); NEUT % 42.4 % (42.8-82.8); PLATELET COUNT 261 10^3/uL (134-434); RBC 4.43 M/mm3 (4.00-5.60); RDW 13.7 % (11.9-15.9); WHITE BLOOD COUNT 3.3 K/mm3 (4.0-10.0)
[2023-10-18 08:38] LABS: CREATININE 0.9 mg/dL (0.55-1.3)
[2023-10-18 08:39] LABS: BILIRUBIN,TOTAL 0.4 mg/dL (0.2-1); TOT PROT 6.6 g/dl (6.4-8.2)
[2023-10-18] MEDS: ACETAMINOPHEN 325 MG TABLET (FP) PO PRN (18:33)
[2023-10-19] MEDS: HYDROCHLOROTHIAZIDE 25 MG TABLET (FP) PO SCH (10:08)
[2023-10-19 14:09] VITALS: BP 116/57; PULSE 73; RESP 18; TEMP 98.2
== END 2023-10-19 16:31 | disposition home or self-care (01) ==
LOC: JER 16:49 → JERBED 18:35 → J7W 10-16 02:08
PROVIDERS: ADMIT Internal Medicine; ATTEND Internal Medicine
PROC: 3E03329 Introduction of Other Anti-infective into Peripheral Vein, Percutaneous Approach (ICD-10-PCS; principal; 2023-10-15)
PROC: 3E0337Z Introduction of Electrolytic and Water Balance Substance into Peripheral Vein, Percutaneous Approach (ICD-10-PCS; 2023-10-15)
PROC: 3E033NZ Introduction of Analgesics, Hypnotics, Sedatives into Peripheral Vein, Percutaneous Approach (ICD-10-PCS; 2023-10-15)
PROC: 3E023GC Introduction of Other Therapeutic Substance into Muscle, Percutaneous Approach (ICD-10-PCS; 2023-10-15)
PROC: 3E0333Z Introduction of Anti-inflammatory into Peripheral Vein, Percutaneous Approach (ICD-10-PCS; 2023-10-15)
DX: L03.116 Cellulitis of left lower limb (principal); F11.20 Opioid dependence, uncomplicated; I10 Essential (primary) hypertension; F31.9 Bipolar disorder, unspecified; B19.20 Unspecified viral hepatitis C without hepatic coma; Z86.718 Personal history of other venous thrombosis and embolism; Z79.01 Long term (current) use of anticoagulants; J30.1 Allergic rhinitis due to pollen; F17.210 Nicotine dependence, cigarettes, uncomplicated
CPT/HCPCS: 36415; 71045-TC-FY; 73590-TC-LT-FY; 80048; 80053; 83735; 83880; 85025; 85610; 85651; 85730; 86140; 87040; 87070; 87186; 87205; 93005; 93010; 93306-TC; 93971-TC; 96365; 96367; 96375; 96376; 99285-25; G0378; J0131; J1644

== ENCOUNTER 2024-09-01 19:47 | Emergency (ER) | payer OTHER ==
[2024-09-01 19:55] VITALS: RESP 18; BMI 23.6
[2024-09-01] MEDS ORDERED: DALBAVANCIN HCL 500 MG VIAL (RESTRICTED TO ID ONLY) IVPB ONE (23:44)
[2024-09-02] MEDS: DALBAVANCIN HCL 1,500 MG in DEXTROSE 5%-WATER - 500 ML IVPB ONE (00:33)
[2024-09-02 00:57] VITALS: BP 122/66; PULSE 86; TEMP 98.4
[2024-09-02] MEDS ORDERED: HALOPERIDOL LACTATE 5 MG/ML ONE (01:47)
[2024-09-02] MEDS ORDERED: LORazepam 2 MG/ML SDV VIAL ONE (01:47)
[2024-09-02 01:57] LABS: HIV INTERPRETATION NEGATIVE (NEGATIVE)
[2024-09-02 02:00] LABS: HCV DIAGNOSTIC IN-HOUSE W/RFLX REACTIVE (NONREACTIVE)
== END 2024-09-02 06:32 | disposition home or self-care (01) ==
LOC: JER 19:47
DX: R60.0 Localized edema (principal); M79.89 Other specified soft tissue disorders
CPT/HCPCS: 36415; 86803; 87389; 87522; 93971-TC; 99285-25; J0875